=== PATIENT | male | born 1955 | race Caucasian/White ===

== ENCOUNTER 2020-04-07 13:49 | Outpatient (CLI) | payer BC ==
--- NOTE | 2020-04-07 14:36 | RAD ---
LUMBAR SPINE: 04/07/20 Total of four views. HISTORY: Low back pain. AP view along with lateral views with neutral, flexion and extension obtained. Lumbar vertebrae maintain height and alignment. Mild loss of disc space at L3-4, L4-5 and L5-S1 level s. Mild to moderate osteophytes from these vertebrae with prominent facet hypertrophy at L4-5 and L5- S1. No spondylolisthesis. Alignment is normally maintained with flexion and extension. IMPRESSION: Mild to moderate degenerative changes lower lumbar spine as described. POS: JOSEPHW
--- NOTE | 2020-04-07 15:10 | MRI ---
MRI LUMBAR SPINE NONCONTRAST: DATE: 04/07/2020 HISTORY: 64-year-old male with low back pain M 54.5 COMPARISON: None FINDINGS: Large round 7 cm well-circumscribed exophytic right renal upper pole mass, at least partially hyperin tense on T2 WI and hypointense on T1 WI, probably a large cyst. For the purposes of this report, it will be assumed that there are 5 lumbar-type vertebrae. Vertebral body heights are maintained. Normal bone marrow signal. 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 This is exacerbated by lumbar spondylosis at the lowest 3 levels. The T12-L1, L1-2, and L2-3 disc spaces are maintained with normal signal. There is disc desiccation at L3-4, L4-5, and L5-S1 with mild to moderate disc space narrowing, especi ally L5-S1. T12-L1:No additional findings. Essentially normal. L1-2:No additional findings. Essentially normal. L2-3:No additional findings. Essentially normal L3-4:Moderately large disc bulge and slight retrolisthesis of L3 on L4, plus superimposed central and bilateral paracentral extruded disc herniation with slight superior migration, right side greater than left, markedly indents the thecal sac. Moderate to severe central spinal canal stenosis. Posteri or epidural fat pad. Severe thecal sac stenosis with crowding of cauda equina and obliteration of CSF signal. Mild to moderate bilateral neural foraminal stenosis. Mild ligamentum flavum thickening a nd mild bilateral facet DJD. L4-5:Prominent diffuse disc bulge and slight retrolisthesis of L4 on L5, plus moderate ligamentum fla vum thickening with mild bilateral facet DJD, result in moderate bilateral neural foraminal stenosis and severe central spinal canal stenosis with crowding of cauda equina and obliteration of C SF signal. Tortuosity of cauda equina superior and inferior to this. L5-S1:Mild to moderate bilateral facet DJD. Moderate ligamentum flavum thickening plus left facet ost eophyte. Prominent diffuse disc bulge. Severe bilateral neural foraminal stenosis. Central and bilateral paracentral superimposed disc herniation. Moderate to severe thecal sac stenosis. Significa nt lateral recess stenosis bilaterally, right greater than left. IMPRESSION: 1) lumbar spondylosis, with moderate degenerative disc disease at L3-4, L4-5, and L5-S1 exacerbating a developmentally small caliber spinal canal. 2) severe thecal sac stenosis at L3-4, severe central spinal canal stenosis at L4-5, high-grade later al recess stenosis bilaterally and moderate central spinal canal stenosis at L5-S1. 3) severe bilateral neural foraminal stenosis at L5-S1.
== END 2020-04-07 13:50 | disposition home or self-care (01) ==
LOC: TBSIIMAG 13:49
PROVIDERS: ATTEND Surgery
DX: M79.606 Pain in leg, unspecified (principal); M47.816 Spondylosis without myelopathy or radiculopathy, lumbar region; M51.16 Intervertebral disc disorders with radiculopathy, lumbar region; M51.37 Other intervertebral disc degeneration, lumbosacral region; M48.061 Spinal stenosis, lumbar region without neurogenic claudication; M48.07 Spinal stenosis, lumbosacral region
CPT/HCPCS: 72120; 72148

== ENCOUNTER 2023-06-21 14:01 | Outpatient (CLI) | payer MEDICARE, OTHER | END 2023-06-21 14:02 | disposition home or self-care (01) | LOC: MRI 14:01 | PROVIDERS: ATTEND Orthopaedic Surgery | DX: S83.521D Sprain of posterior cruciate ligament of right knee, subsequent encounter (principal); M25.461 Effusion, right knee; M71.21 Synovial cyst of popliteal space [Baker], right knee; M23.91 Unspecified internal derangement of right knee; S83.241A Other tear of medial meniscus, current injury, right knee, initial encounter; S83.281A Other tear of lateral meniscus, current injury, right knee, initial encounter; S83.411A Sprain of medial collateral ligament of right knee, initial encounter ==